=== PATIENT | female | born 1965 | race Two or more races ===

== ENCOUNTER 2017-03-12 21:35 | Emergency (ER) | payer OTHER, MEDICAID ==
[2017-03-12 21:41] VITALS: TEMP 98.2; O2SAT 94
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
[2017-03-12 23:33] VITALS: BP 118/74; PULSE 91; RESP 16
== END 2017-03-12 23:33 | disposition home or self-care (01) ==
DX: S92.025A Nondisplaced fracture of anterior process of left calcaneus, initial encounter for closed fracture (principal); F17.200 Nicotine dependence, unspecified, uncomplicated; X58.XXXA Exposure to other specified factors, initial encounter